=== PATIENT | female | born 1935 | race Caucasian/White ===

== ENCOUNTER 2016-12-23 16:03 | Emergency (ER) | payer MEDICARE ==
[2016-12-23 16:24] VITALS: BP 134/68
--- NOTE | 2016-12-23 16:55 | UC ---
General HPI - HPI Summary HPI Summary: patient tripped on a rug and fell, landing on both knees and then to the right hip. - History of Current Complaint Chief Complaint: UCUpperExtremity Stated Complaint: LEFT ARM INJURY/BRUISE Time Seen by Provider: 12/23/16 16:35 Hx Obtained From: Patient Onset/Duration: Sudden Onset, Lasting Days Timing: Constant Onset Severity: Moderate Current Severity: Mild - Allergy/Home Medications Allergies/Adverse Reactions: Allergies Allergy/AdvReac Type Severity Reaction Status Date / Time Morphine Allergy See Comment Verified 12/23/16 16:34 Home Medications: Home Medications Aspirin EC Low Dose* [Ecotrin EC Low Dose 81 MG*] 81 mg PO DAILY 12/23/16 [ History Confirmed 12/23/16] Cholecalciferol TAB* [Vitamin D TAB*] 2,000 units PO DAILY 12/23/16 [History Confirmed 12/23/16] Gabapentin CAP(*) [Neurontin 300 CAP(*)] 300 mg PO BID 12/23/16 [History Confirmed 12/23/16] Irbesartan 75 mg PO DAILY 12/23/16 [History Confirmed 12/23/16] Levothyroxine TAB* [Synthroid TAB*] 112 mcg PO 0800 12/23/16 [History Confirmed 12/23/16] Ropinirole TAB* [Requip TAB*] 0.5 mg PO BEDTIME 12/23/16 [History Confirmed ] Rosuvastatin Calcium [Crestor] 20 mg PO 1700 12/23/16 [History Confirmed ] Sertraline* [Zoloft*] 100 mg PO BEDTIME 12/23/16 [History Confirmed 12/23/16] Warfarin TAB(*) [Coumadin TAB(*)] 2.5 mg PO 1700 12/23/16 [History Confirmed ] amLODIPine TAB* [Norvasc 5 mg TAB*] 5 mg PO DAILY 12/23/16 [History Confirmed ] PMH/Surg Hx/FS Hx/Imm Hx Previously Healthy: Yes Endocrine History Of: Reports: Thyroid Disease Cardiovascular History Of: Reports: Cardiac Disorders, Hypertension Cancer History Of: Denies: Breast Cancer - Surgical History Surgical History: Yes Surgery Procedure, Year, and Place: hiatal hernia repair. Neck surgery. abdominal surgery r/p hiatal hernia repair because of hematoma. cardiac cath w / 3 stents 2001, 2010. Stenting of right kidney r/t kidney stones. cataract surgery. Rotator cuff left side. right total knee. reattached tendon right foot/cyst removal. left thumb surgery - Family History Known Family History: Positive: Renal Disease Negative: Hypertension - Social History Alcohol Use: None Substance Use Type: None Smoking Status (MU): Never Smoked Tobacco Review of Systems Constitutional: Negative Skin: Bruising Eyes: Negative ENT: Negative Respiratory: Negative Cardiovascular: Negative Gastrointestinal: Negative Genitourinary: Negative Motor: Negative Neurovascular: Negative Musculoskeletal: Negative Neurological: Negative Psychological: Negative All Other Systems Reviewed And Are Negative: Yes Physical Exam Triage Information Reviewed: Yes Appearance: Well-Appearing, Well-Nourished, Pain Distress Vital Signs: Initial Vital Signs Temp 98.2 F 12/23/16 16:17 Pulse 58 12/23/16 16:17 Resp 17 12/23/16 16:17 BP 134/68 12/23/16 16:17 Pulse Ox 94 12/23/16 16:17 Vital Signs Reviewed: Yes Eye Exam: Normal Eyes: Positive: Conjunctiva Clear ENT Exam: Normal ENT: Positive: Hearing grossly normal, Pharynx normal, TMs normal Dental Exam: Normal Neck exam: Normal Neck: Positive: Supple, Nontender, No Lymphadenopathy Respiratory Exam: Normal Respiratory: Positive: Chest non-tender, Lungs clear, Normal breath sounds Cardiovascular Exam: Normal Cardiovascular: Positive: RRR, No Murmur, Pulses Normal Abdominal Exam: Normal Abdomen Description: Positive: Nontender, No Organomegaly, Soft Bowel Sounds: Positive: Present Musculoskeletal: Positive: Strength Intact, ROM Intact, Edema @ - over the right hip joint,, Other: - palpable tenderness over the right greater trochanter and [facility] down femur Neurological Exam: Normal Neurological: Positive: Alert, Muscle Tone Normal Psychological Exam: Normal Psychological: Positive: Age Appropriate Behavior Skin: Positive: Other - large bruise on upper left arm, over the rigth greater trochanter, bilateral knees. Course/Dx - Course Course Of Treatment: hx obtained, exam performed, meds reviewed xray obtained of right hip which is negative - Differential Dx - Multi-Symptom Provider Diagnoses: bruise. hip contusion Discharge - Discharge Plan Condition: Stable Disposition: HOME Patient Education Materials: Hip Contusion (ED) Additional Instructions: 1. warm compressed to the hip daily 2. Warm compresses to the arm and gentle massage upward to the heart. 3. It will take a while for the bruises to go away. 4. Follow up with any worsening symtpoms.
--- NOTE | 2016-12-23 17:40 | RAD ---
HISTORY: Fall, right hip pain COMPARISONS: None VIEWS: 3, Frontal view of the pelvis with frontal and frog-leg views of the right hip FINDINGS: BONE DENSITY: There is diffuse osteopenia. BONES: There is no displaced fracture. 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 SOFT TISSUES: Unremarkable. OTHER FINDINGS: DEGENERATIVE CHANGES ARE NOTED OF THE SPINE. AN IVC FILTER IS NOTED IMPRESSION: 1. OSTEOPENIA. 2. OSTEOARTHRITIS. 3. NO RADIOGRAPHIC EVIDENCE FOR HIP FRACTURE. X-RAYS MAY BE NEGATIVE WITH NONDISPLACED HIP FRACTURE, IF THERE IS PERSISTENT CLINICAL CONCERN, RECOMMEND CONSIDERATION OF MRI. IN THE SETTING OF CONTRAINDICATION TO MRI OR LIMITATION IN EMERGENT ACCESS TO MRI, CT WOULD BE SUGGESTED.
== END 2016-12-23 17:52 | disposition home or self-care (01) ==
LOC: UCCORT 16:03
DX: S40.022A Contusion of left upper arm, initial encounter (principal); S70.01XA Contusion of right hip, initial encounter; W01.0XXA Fall on same level from slipping, tripping and stumbling without subsequent striking against object, initial encounter; Y93.9 Activity, unspecified
CPT/HCPCS: 99212; G0463